=== PATIENT | male | born 1960 | race Two or more races ===

== ENCOUNTER 2024-06-02 04:29 | Inpatient (IN) | payer OTHER ==
[~2024-06-02] VITALS: Ht 180.3 cm; Wt 109.0 kg
[2024-06-02] MEDS: IOHEXOL 300 MG/ML 100ML BOTTLE IJ ONE (04:55)
--- NOTE | 2024-06-02 05:09 | ED.PDOC ---
History of Present Illness HPI Comments 63 y/o M, with a HTN and stent w/ASA placement in 2021, presents with spouse on speaker via personal Opti[employer]i-fi device for c/o nonradiating, diffused abdominal and back pain, today. Patient endorses on sudden and unprovoked onset of pain at 0000, this morning, with no relief with 50mg Tramadol and Protonix use. Per spouse, patient is reported to have had similar abdominal pain in the past, which, instead, radiated to his chest and left-arm in February 2024, and was diagnosed with "excessive GERD" and placed on Protonix since then after having GI work-up in [place]. Patient reports no further relevant information, such as any additional significant history or spoiled food, strenuous activities, or sick contact. He denies any nausea, vomiting, diarrhea, fever, chills, or other associated symptoms or modifiers at this time. Chief Complaint: Abdominal Pain Time Seen by MD: 04:50 Reviewed Notes: Nurses Notes, Medications, Allergies Allergies: Coded Allergies: NO KNOWN ALLERGIES (Unverified , 06/02/24) Information Source: Patient, Spouse Mode of Arrival: EMS Severity: Moderate Timing: Hours Duration: Since onset Prehospital treatment: Other (see HPI) Past Medical History PAST MEDICAL HISTORY: GERD Past Medical History (Other): morbid obesity ASA use Surgical History (Other): endoscopy stent placement in 2021 Family History Family History: Unknown Social History Smoker: Non-Smoker Alcohol: Occasionally Drugs: Denies Drug Use Lives In: Home Gastrointestinal: reports: abdominal pain Musculoskeletal: reports: back pain All Other Systems: Reviewed and Negative (Comprehensive review of systems negative unless otherwise stated above or in HPI) Physical Exam General Appearance: Moderate Distress, Obese, Other (appears uncomfortable ) HEENT: Normal ENT Inspection, Pharynx Normal, TMs Normal Neck: Full Range of Motion, Non-Tender, Normal, Normal Inspection Respiratory: Chest Non-Tender, Lungs Clear, No Accessory Muscle Use, No Respiratory Distress, Normal Breath Sounds Cardiovascular: No Edema, No JVD, No Murmur, No Gallop, Normal Peripheral Pulses, Regular Rate/Rhythm Breast Exam: Deferred Gastrointestinal: Diffuse, No Organomegaly, No Pulsatile Mass, Normal Bowel Sounds, Soft Genitalia: Deferred Pelvic: Deferred Rectal: Deferred Extremities: No calf tenderness, Normal capillary refill, Normal inspection, Normal range of motion, Non-tender, No pedal edema Musculoskeletal : Apperance: Normal Neurologic: Alert, marketing content specialist II-XII nml as Tested, No Motor Deficits, Normal Affect, Normal Mood, No Sensory Deficits Cerebellar Function: Normal Reflexes: Normal Skin: Dry, Normal Color, Warm Peripheral Pulses: 3+ Radial (R), 3+ Radial (L) Lymphatic: No Adenopathy Was a procedure done? Was a procedure done?: No Differential Dx Considerations may include: GERD, gastritis, gastroenteritis, PUD, spoiled food, viral syndrome, among others X-Ray, Labs, Meds, VS Vital Signs Date Time Temp Pulse Resp B/P (MAP) Pulse Ox O2 Delivery O2 Flow Rate FiO2 06/02/24 06:34 97.6 72 18 131/72 (91) 95 97.6 06/02/24 06:18 72 18 131/72 06/02/24 05:30 75 12 126/60 06/02/24 05:10 75 12 99 Room Air* 0 21 06/02/24 05:10 97.4 75 12 126/60 (82) 99 97.4 06/02/24 04:50 78 06/02/24 04:46 97.8 79 20 122/79 (93) 99 97.8 Lab Test 06/02/24 05:08 Range/Units White Blood Count 11.8 H 4.4-10.8 10^3/uL Red Blood Count 5.39 4.5-5.90 10^6/uL Hemoglobin 17.1 13.5-17.5 g/dL Hematocrit 51.7 41.0-53.0 % Mean Corpuscular Volume 95.9 80.0-100.0 fL Mean Corpuscular Hemoglobin 31.7 28.0-32.0 pg Mean Corpuscular Hemoglobin Concent 33.1 32.0-36.0 g/dL Red Cell Distribution Width 18.3 H 11.8-14.3 % Platelet Count 310 140-450 10^3/uL Mean Platelet Volume 10.9 H 6.9-10.8 fL Neutrophils (%) (Auto) 73.9 37.0-80.0 % Lymphocytes (%) (Auto) 14.0 10.0-50.0 % Monocytes (%) (Auto) 6.0 0.0-12.0 % Eosinophils (%) (Auto) 4.8 0.0-7.0 % Basophils (%) (Auto) 1.3 0.0-2.0 % Neutrophils # (Auto) 8.7 H 1.6-8.6 10 ^3/uL Lymphocytes # (Auto) 1.6 0.4-5.4 10 ^3/uL Monocytes # (Auto) 0.7 0-1.3 10 ^3/uL Eosinophils # (Auto) 0.6 0-0.8 10 ^3/uL Basophils # (Auto) 0.2 0-0.2 10 ^3/uL Nucleated Red Blood Cells 0.6 % Sodium Level 138 136-145 mmol/L Potassium Level 3.5 3.5-5.1 mmol/L Chloride Level 105 98-107 mmol/L Carbon Dioxide Level 21 20-31 mmol/L Anion Gap 12 5-15 Blood Urea Nitrogen 15 9-23 mg/dL Creatinine 1.43 H 0.700-1.30 mg/dL Glomerular Filtration Rate Calc 56 >90 mL/min BUN/Creatinine Ratio 10.5 10.0-20.0 Serum Glucose 131 H 74-106 mg/dL Calcium Level 10.6 H 8.7-10.4 mg/dL Total Bilirubin 0.7 0.2-1.0 mg/dL Aspartate Amino Transferase (AST) 24 13-40 U/L Alanine Aminotransferase (ALT) 42 H 7-40 U/L Alkaline Phosphatase 83 46-116 U/L Troponin I High Sensitivity 3 L </=54 ng/L Total Protein 7.6 5.7-8.2 g/dL Albumin 4.9 H 3.2-4.8 g/dL Lipase 42 12-53 U/L Current Medications Medications (Trade) Dose Ordered Sig/Cora Route Start Time Stop Time Status Last Admin Morphine Sulfate 4 mg ONCE ONCE IV 06/02/24 05:00 06/02/24 05:01 DC 06/02/24 05:30 Sodium Chloride 1,000 ml @ 1,000 mls/hr Q1H ONCE IV 06/02/24 05:00 06/02/24 05:59 DC 06/02/24 05:24 Ondansetron HCl (Zofran) 4 mg ONCE ONCE IV 06/02/24 05:00 06/02/24 05:01 DC 06/02/24 05:29 Pantoprazole Sodium (Protonix) 40 mg ONCE ONCE IV 06/02/24 05:00 06/02/24 05:01 DC 06/02/24 05:30 Patient alert. Complaining of abdominal pain. Vitals stable. Answering questions. CT scan of the abdomen reviewed does show gallstones. Liver enzymes elevated. WBC elevated. Establish intravenous access. Was given fluids. Was given morphine. Was given Zofran. Was given Protonix. Will require HIDA scan. Was given Rocephin. Explained to the patient. Continue cardiac monitoring. Time of 1ST Reevaluation: 05:20 Reevaluation 1ST: Unchanged Patient Education/Counseling: Diagnosis, Treatment Family Education/Counseling: Diagnosis, Treatment Additional Information Previous visit documents reviewed: n/a The following tests were ordered, and results were reviewed by me: Additional Information was gathered from interviewing the following independent historians: spouse I reviewed and agreed with the following test results read by other providers: I discussed treatment and results with medical personnel and: Patient and spouse Departure 1 Departure Time of Disposition: 07:32 Impression: Primary Impression: Acute abdominal pain Additional Impressions: Gallstones Hepatic steatosis Disposition: ADMITTED INPATIENT Admit to: Med Surg Condition: Guarded Critical Care Note Critical Care Time?: No Stability Stability form required: No Heart Score Heart Score: Heart Score Response (Comments) Value History N/A 0 EKG N/A 0 Age N/A 0 Risk Factors N/A 0 Troponin N/A 0 Total 0 I personally scribed for JULIANO COLEY MD ([email or web address]) on 06/02/24 at 05:09. Electronically submitted by Viet Lezama [email or web address]). JULIANO COLEY MD Jun 02, 2024 05:09 BEN MYERS MD Jun 02, 2024 07:33
[2024-06-02 05:10] VITALS: PULSE 75; RESP 12; O2SAT 99
[2024-06-02] MEDS: SODIUM CHLORIDE 0.9% 1,000 ML IV ONE (05:24)
[2024-06-02] MEDS: ONDANSETRON HCL 4 MG/2 ML VIAL IV ONE ×2 (05:29→08:33)
[2024-06-02] MEDS: MORPHINE SULFATE 4 MG/ML SYR/VIAL IV ONE ×2 (05:30→08:34)
[2024-06-02] MEDS: PANTOPRAZOLE 40 MG/10 ML VIAL INJ IV ONE (05:30)
[2024-06-02 05:37] LABS: Alkaline Phosphatase 83 U/L (46-116); Anion Gap 12 (5-15); Aspartate Aminotransferase 24 U/L (13-40); BUN/Creatinine Ratio 10.5 (10.0-20.0); Blood Urea Nitrogen 15 mg/dL (9-23); Carbon Dioxide 21 mmol/L (20-31); Chloride 105 mmol/L (98-107); Lipase 42 U/L (12-53); Sodium 138 mmol/L (136-145); Total Protein 7.6 g/dL (5.7-8.2)
[2024-06-02 05:38] LABS: Bilirubin, Total 0.7 mg/dL (0.2-1.0)
[2024-06-02 05:39] LABS: Alanine Aminotransferase 42 U/L (7-40); Albumin 4.9 g/dL (3.2-4.8); Calcium 10.6 mg/dL (8.7-10.4); Glucose 131 mg/dL (74-106); Potassium 3.5 mmol/L (3.5-5.1)
--- NOTE | 2024-06-02 05:54 | ECG ---
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
--- NOTE | 2024-06-02 06:25 | DVH ---
EXAM: CT Abdomen and Pelvis With Intravenous Contrast CLINICAL INDICATION: abdominal pain TECHNIQUE: Axial computed tomography images of the abdomen and pelvis with intravenous contrast. Th is CT exam was performed using one or more of the following dose reduction techniques: automated exp osure control, adjustment of the mA and/or kV according to patient size, and/or use of iterative tomás nstruction technique. CONTRAST: RADIATION DOSE: CTDIvol = 25.4 mGy, DLP = 1384.33 mGy-cm COMPARISON: None FINDINGS: LUNG BASES: Unremarkable. No mass. No consolidation. ABDOMEN: LIVER: Hepatomegaly with fatty infiltration. Hepatic cysts. GALLBLADDER AND BILE DUCTS: Cholelithiasis. No ductal dilation. PANCREAS: Unremarkable. No mass. No ductal dilation. SPLEEN: Splenomegaly. ADRENALS: Unremarkable. No mass. KIDNEYS AND URETERS: Unremarkable. No stones within either kidney. No hydronephrosis. STOMACH AND BOWEL: Unremarkable. No obstruction. No mucosal thickening. PELVIS: APPENDIX: No findings to suggest acute appendicitis. BLADDER: Unremarkable. No mass. REPRODUCTIVE: Unremarkable as visualized. ABDOMEN and PELVIS: INTRAPERITONEAL SPACE: Unremarkable. No free air. No significant fluid collection. BONES/JOINTS: No acute fracture. No dislocation. SOFT TISSUES: Umbilical hernia containing fat. VASCULATURE: Unremarkable. No abdominal aortic aneurysm. LYMPH NODES: Unremarkable. No enlarged lymph nodes. OTHER FINDINGS: . . IMPRESSION: 1. Hepatomegaly with fatty infiltration. 2. Cholelithiasis. 3. Splenomegaly. 4. Umbilical hernia containing fat. 5. No obstructive uropathy.
[2024-06-02 07:12] LABS: Basophils # (auto) 0.2 10 ^3/uL (0-0.2); Basophils % (auto) 1.3 % (0.0-2.0); Eosinophils # (auto) 0.6 10 ^3/uL (0-0.8); Eosinophils % (auto) 4.8 % (0.0-7.0); Hematocrit 51.7 % (41.0-53.0); Hemoglobin 17.1 g/dL (13.5-17.5); Lymphocytes # (auto) 1.6 10 ^3/uL (0.4-5.4); Mean Corpuscular Hemoglobin 31.7 pg (28.0-32.0); Mean Corpuscular Hgb Conc. 33.1 g/dL (32.0-36.0); Mean Corpuscular Volume 95.9 fL (80.0-100.0); Monocytes # (auto) 0.7 10 ^3/uL (0-1.3); Neutrophils # (auto) 8.7 10 ^3/uL (1.6-8.6); Neutrophils % (auto) 73.9 % (37.0-80.0); Nucleated Red Blood Cells % 0.6 %; Platelet Count (auto) 310 10^3/uL (140-450); Red Blood Cells 5.39 10^6/uL (4.5-5.90); Red Cell Distribution Width 18.3 % (11.8-14.3); White Blood Cell 11.8 10^3/uL (4.4-10.8)
[2024-06-02] MEDS: cefTRIAXone 1GM/50ML D5W 50 ML IV ONE (07:54)
[2024-06-02 08:00] VITALS: RESP 12; O2SAT 99
[2024-06-02 08:22] LABS: Urine Bacteria None Seen /hpf (None Seen)
[2024-06-02 08:34] LABS: Urine Blood Negative /uL (Negative); Urine Clarity Clear (Clear); Urine Color Yellow (Yellow); Urine Protein, UAD TRACE (Negative); Urine Squamous Epithelial Cell None Seen /hpf (<5); Urine Urobilinogen Normal (Negative); Urine WBC < 1 /HPF (0-3); Urine pH 5.5 (5.0-9.0)
[2024-06-02 08:39] LABS: Urine Specific Gravity > 1.050 (1.001-1.035)
[2024-06-02] MEDS ORDERED: PANT40T PO (08:40)
[2024-06-02] MEDS ORDERED: ATOR20TA PO (08:40)
[2024-06-02] MEDS ORDERED: EZET-10 PO (08:40)
[2024-06-02] MEDS ORDERED: CHOL400T19 PO (08:40)
[2024-06-02] MEDS ORDERED: TRAM50TA2 PO (08:40)
[2024-06-02] MEDS ORDERED: ONDANSETRON HCL 4 MG/2 ML VIAL IV PRN (08:45)
[2024-06-02] MEDS ORDERED: HYDROcodone-ACET 5/325MG TAB PO PRN (08:45)
[2024-06-02] MEDS ORDERED: MORPHINE SULFATE INJ 2 MG/ml SYRG IV PRN (08:45)
[2024-06-02] MEDS ORDERED: ACETAMINOPHEN 325 MG TAB PO PRN (08:45)
--- NOTE | 2024-06-02 08:56 | DVHHP2 ---
History of Present Illness Reason for Visit: Abdominal pain History of Present Illness Art Tesfaye is a 63-year-old male with past medical history of GERD, [place] in 2021 with stent and hyperlipidemia, who came to the hospital for severe abdominal pain. Patient states his pain started about midnight. He ate steak and potatoes for dinner, then was awoken by the severe pain. Patient states he had pain like this prior and was diagnosed with GERD. Patient states he was told his gallbladder has sludge prior, but not stones. Patient lives in [place], he is here working and is supposed to be going home on Saturday evening. If a surgical or other intervention is required, he would prefer to be able to go home and have it completed there. Cardiovascular: [place] (2021 with stent placed), hyperipidemia GI: GERD Past Surgical History: Other (PTCA 2021) Smoke: Quit (2021) ALCOHOL: none Drugs: None Lives: with Family Review of Systems Constitutional: No: Fever, Chills, Sweats, Weakness, Malaise, Other Eyes: No: Pain, Vision change, Conjunctivae inflammation, Eyelid inflammation, Other, Redness ENT: No: Ear pain, Ear discharge, Nose pain, Nose discharge, Nose congestion, Mouth pain, Mouth swelling, Throat pain, Throat swelling, Other Respiratory: No: Cough, Dry, Shortness of breath, SOB with excertion, Wheezing, Hemoptysis, Pleuritic Pain, Sputum, Wheezing, Other Cardiovascular: No: Chest Pain, Palpitations, Orthopnea, Paroxysmal Noc. Dyspnea, Edema, Lt Headedness, Other Gastrointestinal: Nausea, Abdominal Pain; No: Vomiting, Diarrhea, Constipation, Melena, Hematochezia, Other Genitourinary: No Dysuria, No Frequency, No Incontinence, No Hematuria, No Retention, No Other Musculoskeletal: No: other, neck pain, shoulder pain, arm pain, back pain, hand pain, leg pain, foot pain Skin: No: Rash, Lesions, Jaundice, Bruising, Other Neurological: No: Weakness, Numbness, Incoordination, Change in speech, Confusion, Seizures, Other Allergies: Coded Allergies: NO KNOWN ALLERGIES (Unverified , 06/02/24) Medications Current Medications Medications Dose Ordered Sig/Cora Route Start Time Stop Time Status Last Admin Dose Admin Sodium Chloride 1,000 ml @ 75 mls/hr [id number] IV 06/02/24 08:45 UNV Acetaminophen/ Hydrocodone Bitart 1 tab Q4HP PRN PO 06/02/24 08:45 UNV Ondansetron HCl 4 mg Q4HP PRN IV 06/02/24 08:45 UNV Acetaminophen 650 mg Q6HP PRN PO 06/02/24 08:45 UNV Pantoprazole Sodium 40 mg BID IV 06/02/24 10:00 UNV Ceftriaxone Sodium 50 ml @ 100 mls/hr DAILY@09 IV 06/03/24 09:00 UNV Morphine Sulfate 2 mg Q4HPRN PRN IV 06/02/24 08:45 UNV Atorvastatin Calcium 40 mg HS PO 06/02/24 22:00 UNV EZETIMIBE 10 mg DAILY PO 06/02/24 10:00 UNV Patient Own Medication 400 unit DAILY PO 06/02/24 10:00 UNV Exam Vital Signs Vital Signs Date Time Temp Pulse Resp B/P (MAP) Pulse Ox O2 Delivery O2 Flow Rate FiO2 06/02/24 08:34 73 13 121/79 06/02/24 08:04 97.7 94 97.7 06/02/24 08:00 Room Air* 0 21 General Appearance: Alert, Oriented X3, Cooperative, moderate distress HEENT: Atraumatic, PERRLA Respiratory: Clear to auscultation, Normal air movement Cardiovascular: Regular rate, Normal S1, Normal S2, No murmurs Abdominal: Normal bowel sounds, Other (bloated, tender to palpitation) Extremities: No clubbing, No cyanosis, No edema, Normal pulses, No tenderness/swelling Skin: No rashes, No breakdown, No significant lesion Neuro: Normal gait, Normal speech, Strength at 5/5 X4 ext, Normal tone Psych/Mental Status: Mental status NL, Mood NL Labs/Xrays Labs Test 06/02/24 08:22 06/02/24 05:08 Range/Units Urine Color Yellow Yellow Urine Clarity Clear Clear Urine pH 5.5 5.0-9.0 Urine Specific [place] > 1.050 H 1.001-1.035 Urine Protein Trace H Negative Urine Ketones Negative Negative Urine Blood Negative Negative /uL Urine Nitrite Negative Negative Urine Bilirubin Negative Negative Urine Urobilinogen Normal Negative mg/dL Urine Leukocyte Esterase Negative Negative /uL Urine RBC <1 0 - 3 /hpf Urine Microscopic WBC < 1 0-3 /HPF Urine Squamous Epithelial Cells None seen <5 /hpf Urine Bacteria None seen None Seen /hpf Urine Glucose Normal Normal mg/dL White Blood Count 11.8 H 4.4-10.8 10^3/uL Red Blood Count 5.39 4.5-5.90 10^6/uL Hemoglobin 17.1 13.5-17.5 g/dL Hematocrit 51.7 41.0-53.0 % Mean Corpuscular Volume 95.9 80.0-100.0 fL Mean Corpuscular Hemoglobin 31.7 28.0-32.0 pg Mean Corpuscular Hemoglobin Concent 33.1 32.0-36.0 g/dL Red Cell Distribution Width 18.3 H 11.8-14.3 % Platelet Count 310 140-450 10^3/uL Mean Platelet Volume 10.9 H 6.9-10.8 fL Neutrophils (%) (Auto) 73.9 37.0-80.0 % Lymphocytes (%) (Auto) 14.0 10.0-50.0 % Monocytes (%) (Auto) 6.0 0.0-12.0 % Eosinophils (%) (Auto) 4.8 0.0-7.0 % Basophils (%) (Auto) 1.3 0.0-2.0 % Neutrophils # (Auto) 8.7 H 1.6-8.6 10 ^3/uL Lymphocytes # (Auto) 1.6 0.4-5.4 10 ^3/uL Monocytes # (Auto) 0.7 0-1.3 10 ^3/uL Eosinophils # (Auto) 0.6 0-0.8 10 ^3/uL Basophils # (Auto) 0.2 0-0.2 10 ^3/uL Nucleated Red Blood Cells 0.6 % Sodium Level 138 136-145 mmol/L Potassium Level 3.5 3.5-5.1 mmol/L Chloride Level 105 98-107 mmol/L Carbon Dioxide Level 21 20-31 mmol/L Anion Gap 12 5-15 Blood Urea Nitrogen 15 9-23 mg/dL Creatinine 1.43 H 0.700-1.30 mg/dL Glomerular Filtration Rate Calc 56 >90 mL/min BUN/Creatinine Ratio 10.5 10.0-20.0 Serum Glucose 131 H 74-106 mg/dL Calcium Level 10.6 H 8.7-10.4 mg/dL Total Bilirubin 0.7 0.2-1.0 mg/dL Aspartate Amino Transferase (AST) 24 13-40 U/L Alanine Aminotransferase (ALT) 42 H 7-40 U/L Alkaline Phosphatase 83 46-116 U/L Troponin I High Sensitivity 3 L </=54 ng/L Total Protein 7.6 5.7-8.2 g/dL Albumin 4.9 H 3.2-4.8 g/dL Lipase 42 12-53 U/L EXAM: CT Abdomen and Pelvis With Intravenous Contrast FINDINGS: LUNG BASES: Unremarkable. No mass. No consolidation. ABDOMEN: LIVER: Hepatomegaly with fatty infiltration. Hepatic cysts. GALLBLADDER AND BILE DUCTS: Cholelithiasis. No ductal dilation. PANCREAS: Unremarkable. No mass. No ductal dilation. SPLEEN: Splenomegaly. ADRENALS: Unremarkable. No mass. KIDNEYS AND URETERS: Unremarkable. No stones within either kidney. No hydronephrosis. STOMACH AND BOWEL: Unremarkable. No obstruction. No mucosal thickening. PELVIS: APPENDIX: No findings to suggest acute appendicitis. BLADDER: Unremarkable. No mass. REPRODUCTIVE: Unremarkable as visualized. ABDOMEN and PELVIS: INTRAPERITONEAL SPACE: Unremarkable. No free air. No significant fluid collection. BONES/JOINTS: No acute fracture. No dislocation. SOFT TISSUES: Umbilical hernia containing fat. VASCULATURE: Unremarkable. No abdominal aortic aneurysm. LYMPH NODES: Unremarkable. No enlarged lymph nodes. OTHER FINDINGS: . . IMPRESSION: 1. Hepatomegaly with fatty infiltration. 2. Cholelithiasis. 3. Splenomegaly. 4. Umbilical hernia containing fat. 5. No obstructive uropathy. Assessment/Plan Assessment/Plan Assessment: Cholelithiasis, Possible cholecystis, Leukocytosis, Plan: Admit to Med-Surg, GI consult, Abdominal ultrasound, Consider HIDA scan if needed, IV hydration, NPO except medications, IV antibiotics, Home medications reconciled, Plan discussed with: Patient My Orders Orders - MYRIAM MATSON Procedure Category Date Status Time Admit ADMIT 06/02/24 Transmitted 08:34 Code Status CODE 06/02/24 Transmitted 08:34 Sodium Chloride 0.9% PHA 06/02/24 Logged 08:45 Hydrocodone-Acet PHA 06/02/24 Logged 5/325mg Tab ([place] 08:45 Ondansetron Hcl PHA 06/02/24 Logged (Zofran) 08:45 Complete Blood Count LAB 06/03/24 Verified 04:00 Comprehensive LAB 06/03/24 Verified Metabolic Panel 04:00 Condition: Serious RICH 06/02/24 In Process 08:34 Acetaminophen Tablet PHA 06/02/24 Logged (Tylenol Tablet) 08:45 Gallbladder US 06/02/24 Logged 08:34 * Gi Dvh Piano Regulator CONS 06/02/24 Transmitted 08:34 Pantoprazole PHA 06/02/24 Logged (Protonix) 10:00 Ceftriaxone 1gm/50ml PHA 06/03/24 Logged D5w (Rocephin) 09:00 Morphine Sulfate PHA 06/02/24 Logged Injection 08:45 Atorvastatin (Lipitor) PHA 06/02/24 Logged 22:00 Ezetimibe (Zetia) PHA 06/02/24 Logged 10:00 (Nf) Cholecalciferol PHA 06/02/24 Logged (Vitamin D-3) 10:00 Date of Service: Jun 02, 2024 Billing Provider: MYRIAM MATSON Common Visit Codes: [id number] INP/OBS CARE (MOD) MYRIAM MATSON Jun 02, 2024 08:56
[2024-06-02] MEDS: PANTOPRAZOLE 40 MG/10 ML VIAL INJ IV SCH (09:02)
[2024-06-02] MEDS: SODIUM CHLORIDE 0.9% 1,000 ML IV SCH (09:02)
[2024-06-02 09:30] VITALS: BP 124/85; PULSE 76; RESP 14; TEMP 98.5; O2SAT 96
--- NOTE | 2024-06-02 09:35 | DVH ---
INDICATION: Cholelithiasis TECHNIQUE: Multiple real-time sonographic images of the abdomen were obtained. COMPARISON: None FINDINGS: The liver is increased in echogenicity. The liver measures 16.2 cm. No intrahepatic biliar y ductal dilatation is noted. There is a cyst adjacent to the gallbladder which measures 1.1 x 0.8 x 0.9 cm. Hypoechoic region adjacent to the gallbladder suggesting focal fatty sparing. The gallbladder wall measures 0.3 cm and is unremarkable. Distended gallbladder with stones and slud ge. The common duct measures 0.7 cm and is unremarkable. No pericholecystic fluid is noted. Negativ e sonographic arnold's sign. The right kidney measures 9.9 cm. No hydronephrosis. The pancreas is not well visualized due to obscuration from bowel gas. The visualized portions of the IVC and aorta are grossly unremarkable. IMPRESSION: 1. Gallstones and sludge. Mild dilatation of the common bile duct. No significant gallbladder wall th ickening or Arnold's sign. 2. Hepatic steatosis. Focal fatty sparing adjacent to the gallbladder.
[2024-06-02] MEDS: CHOLECALCIFEROL 400 UNIT PO SCH (10:00)
[2024-06-02] MEDS: EZETIMIBE 10 MG TAB PO SCH (12:11)
[2024-06-02] MEDS ORDERED: ATORVASTATIN 20 MG TAB PO SCH (22:00)
[2024-06-03] MEDS ORDERED: cefTRIAXone 1GM/50ML D5W 50 ML IV SCH (09:00)
== END 2024-06-02 14:00 | disposition left against medical advice (07) | DRG 446 ==
LOC: ER 04:29 → OVERFLOW 08:34
PROVIDERS: ADMIT Nurse Practitioner Family; ATTEND Nurse Practitioner Family
DX: K80.10 Calculus of gallbladder with chronic cholecystitis without obstruction (principal); D72.829 Elevated white blood cell count, unspecified; E66.01 Morbid (severe) obesity due to excess calories; K21.9 Gastro-esophageal reflux disease without esophagitis; M54.9 Dorsalgia, unspecified; E78.5 Hyperlipidemia, unspecified; Z53.29 Procedure and treatment not carried out because of patient's decision for other reasons; I10 Essential (primary) hypertension; K76.0 Fatty (change of) liver, not elsewhere classified; Z68.33 Body mass index [BMI] 33.0-33.9, adult; I25.2 Old myocardial infarction; Z95.5 Presence of coronary angioplasty implant and graft
CPT/HCPCS: 36415; 74177; 76705; 80053; 81001; 83690; 84484; 85025; 93005; 96361; 96365; 96375; 96376; G0378; J2405; J2470